=== PATIENT | female | born 1950 | race Caucasian/White ===

== ENCOUNTER 2018-12-25 07:49 | Emergency (ER) | payer MEDICARE, OTHER ==
[2018-12-25] MEDS ORDERED: KETOROLAC TROMETHAMINE 30 MG/1ML VIAL ONE (08:19)
[2018-12-25] MEDS ORDERED: NORMAL SALINE 1,000 ML IV.SOLN IV ONE (08:19)
[2018-12-25] MEDS ORDERED: CIPROFLOXACIN IN 5 % DEXTROSE 400 MG/200 ML BAG IV ONE (08:19)
[2019-01-11 14:22] LABS: eGFR (Non-African) 31
[2019-01-11 14:23] LABS: BASOPHILS % 0.7 % (0.0-1.5); NEUTROPHILS # 9.9 # k/uL (1.4-7.7)
[2019-01-11 14:45] LABS: APPEARANCE,URINE CLOUDY (CLEAR); COLOR,URINE AMBER (YELLOW); OCCULT BLOOD,URINE 3+ (NEGATIVE); UROBILINOGEN URINE 0.2 Eu (0.2-1.0)
--- NOTE | 2019-01-29 10:28 | Diagnostic Imaging Report ---
ZAFAR SCHMIDT [facility] [address] [address] [place], [place]. [address] Report Submission Date: Dec 25, 2018 9:26:15 AM CDT Patient Study Name: HOWARD CABRERA Date: Dec 25, 2018 8:47:49 AM CDT Modality Type: CT\SR Gender: F Description: CT ABD/PEL W/O RENAL STONE : 52 Institution: [facility] Physician: ZAFAR SCHMIDT Exam: CT abdomen and pelvis without contrast. History: Right-sided flank pain. Axial images through the abdomen and pelvis without oral or IV contrast is submitted along with sagittal and coronal reformatted images. The visualized lower lung don are clear. No free intraperitoneal air is identified. A moderate size hiatal hernia is identified. The gallbladder is distended without stones. The liver, spleen and pancreas are normal in attenuation. The abdominal aorta is of normal caliber. The adrenal glands are normal configuration. No significant periaortic lymphadenopathy is detected on this nonenhanced study. Punctate calcifications in the lower pole calices of both kidneys is noted. Enlargement of the right kidney is compared to the left is noted with surrounding inflammatory changes. A right-sided hydronephrosis and hydroureter is identified. A 3.9 mm stone at the right vesicoureteral junction is noted. The urinary bladder is incompletely distended which may account for the thickened appearance of the wall. The uterus is anteflexed but normal in attenuation. No adnexal masses or free cul-de-sac fluid is identified. The small bowel is of normal caliber. Air and stool seen throughout the large intestine. No olivier ascites is identified. A levoscoliosis to the lumbar spine is noted. Degenerate changes are noted. Mild degenerate changes in both hip joints are noted. Impression: Moderate size hiatal hernia. Bilateral renal stones in the lower poles of both kidneys are noted. Slight enlargement of the right kidney is compared to the left with surrounding perinephric fatty stranding which may represent inflammatory process. A right-sided hydronephrosis and hydroureter secondary to a 3.9 mm stone at the right vesicoureteral junction is noted. Electronically signed on Dec 25, 2018 9:26:15 AM CDT by: Cyrus DAUGHERTY
== END 2018-12-25 10:33 ==
LOC: ED 07:49
DX: N20.1 Calculus of ureter (principal); N20.9 Urinary calculus, unspecified
CPT/HCPCS: 36415; 74176; 80053; 81002; 85025; 87086; 96365; 96375; 99283; 99284; J0744; J1885; J7030; S1016